=== PATIENT | female | born 1935 | race Caucasian/White ===

== ENCOUNTER 2021-05-19 09:24 | Outpatient (CLI) | payer MEDICARE, SELFPAY ==
--- NOTE | 2021-05-19 10:32 | ECG_ITS ---
Measurements Intervals [place] Rate: 67 P: 45 NV: 162 QRS: 4 QRSD: 80 T: 40 QT: 434 QTc: 458 Interpretive Statements SINUS RHYTHM INCOMPLETE RIGHT BUNDLE BRANCH BLOCK BASELINE ARTIFACT- I, III, AVR, AVL, AVF BORDERLINE ECG Electronically Signed On 05-19-2021 10:47:24 CREOSOTING ENGINEER by Kurt Loya D.O.
[2021-05-19 11:03] LABS: Basophils Absolute Auto 0.1 K/mm3 (0.0-0.1); Basophils Percent Auto 0.9 % (0.2-1.2); Eosinophils Absolute Auto 0.1 K/mm3 (0-0.3); Eosinophils Percent Auto 1.5 % (0-4.4); Hematocrit 44.2 % (37.0-47.0); Hemoglobin 14.5 g/dL (12.0-15.0); Immature Granulocyte Absolute 0.01 K/mm3 (0.00-0.031); Immature Granulocyte Percent A 0.1 % (0-0.5); Lymphocytes Percent Auto 43.6 % (18.3-44.2); Mean Corpuscular HGB Conc 32.8 g/dl (32-36); Mean Corpuscular Hemoglobin 33.4 pg (26-34); Mean Corpuscular Volume 101.8 fl (80-100); Mean Platelet Volume 9.7 fl (7.4-10.4); Monocytes Absolute Auto 0.5 K/mm3 (0.1-0.6); Monocytes Percent Auto 7.1 % (2.6-8.5); Neutrophils Absolute Auto 3.2 K/mm3 (1.3-6.7); Neutrophils Percent Auto 46.8 % (45.5-73.1); Platelet Count Result 269 k/mm3 (150-375); Red Blood Count 4.34 M/mm3 (4.2-5.4); Red Cell Distribution Width 13.3 % (11.5-14.5); White Blood Count 6.9 K/mm3 (4.5-10.0)
[2021-05-19 11:09] LABS: Albumin Level 4.3 g/dL (3.5-5.1); Estimated Glomerular Filt Rate > 60; Glucose 105 mg/dL (65-110)
[2021-05-19 11:14] LABS: Hemoglobin A1C 5.3 % (<5.7)
[2021-05-19 11:22] LABS: Urine Cotinine NEGATIVE
== END 2021-05-19 09:25 | disposition home or self-care (01) ==
LOC: ANHSURGERY 09:32
PROVIDERS: PCP Internal Medicine; Visit Provider Orthopaedic Surgery
DX: M17.11 Unilateral primary osteoarthritis, right knee (principal); Z01.818 Encounter for other preprocedural examination; I45.10 Unspecified right bundle-branch block
CPT/HCPCS: 80307; 82040; 82565; 82947; 83036; 85025; 87081; 93005

== ENCOUNTER 2021-06-08 16:01 | Observation (INO) | payer MEDICARE, SELFPAY ==
[2021-05-19 09:44] VITALS: BMI 28.8
--- NOTE | 2021-05-19 10:11 | PC.NURSE ---
Report to the Outpatient Waiting Room, entrance under the green pavilion located off [facility], at time 0830 on date _06/07/21 . OR Time: _1030 . - You and your visitor will be asked a series of questions to screen for COVID 19 for your protection. - A mask is required within the hospital. - Only one visitor is allowed at this time. Patient visitors will be guided where to wait when not with patient. Preoperative COVID Testing Requirements: No COVID Test needed if: (proof is required; if not received patient will have Rapid Test prior to entry) - Patient has received COVID Vaccine at least 14 days prior to procedure date or - Patient has positive COVID test result within last 90 days of surgery date. COVID Test needed if above criteria is not met If not COVID vaccinated a COVID test must be conducted within 72 hours of surgery and patient is asked to isolate self from time of testing until procedure. You will go to the [facility] for your COVID testing. The [facility] is located at the corner of [address] [facility]. You will only be called if COVID results are positive and your surgeon may reschedule your elective surgery date. Patients may have clear liquids (water, carbonated beverages, clear teas, apple juice) until 3 hours prior to surgery with a maximum of 20 ounces. - No food from midnight until time of surgery - Infants may have breast milk until 4 hours before surgery, formula 6 hours prior to surgery. - Children will be allowed to drink immediately following surgery. If applicable, please bring a bottle or sippy cup to assist with drinking. Juice, water, soda, and popsicles are readily available. For infants on formula, please bring formula the day of surgery. Pacifiers are allowed. Take the following medications with a SIP of water the morning of surgery: __ALPRAZOLAM,METOPROLOL,SERTRALINE Medications to discontinue per physician __ALL VITAMINS AND SUPPLEMENTS 3 DAYS PRE OP Date to take last dose__06/03/21 Please no make-up, nail indonesian, hairspray, perfume, deodorant, or body powder the day of surgery. No jewelry (including any body piercings) or valuables the day of surgery, leave them at home. Please take a shower or bath the night before, or the morning of, surgery with an antibacterial soap. Wear comfortable, loose fitting clothing. Children are encouraged to wear pajamas. - Jewelry must be removed prior to entering the operating room. Rings and piercings that are not removed may be cut off. - The hospital will not accept responsibility for valuables. - Please leave all valuables, including medications, at home the day of surgery. If you are going home after surgery, a licensed spike driver must drive you home. - NO public transportation without another adult. - We recommend that an adult stay with you for 24 hours following discharge. - We also recommend that you do not drive, make important decision, drink alcoholic beverages, or take any drugs that were not prescribed by your health care provider for at least 24 hours after your discharge time. For Pediatric surgeries, we recommend two adults accompany the child home (only one inside the building at this time). Follow any additional instructions given to you from your surgeon. VERBAL instructions given to _PATIENT AND DAUGHTER TREVOR and asked if any additional questions and then verbalized understanding. Patient advised to call surgeon office or pre surgery nurse liaison [phone] if any additional questions.
[2021-05-19 10:30] VITALS: BP 134/63; PULSE 65; RESP 16; TEMP 36.8; O2SAT 98
--- NOTE | 2021-06-06 09:45 | WPDANESEPPF ---
Anes - Initial Pre Proc Eval Procedure: Operation Date: 06/07/21 07:30 Proposed Procedures p Right Total Knee Arthroplasty - Juan Moses MD Date/Time: 06/06/21 09:45 Surgeon: Juan Moses MD Pre Op Diagnosis: right knee OA Patient Data Age: 86 Gender: F Height: 1.6 m Weight: 73.8 kg Last Vital Signs Temp 36.8 C 05/19/21 10:30 Pulse 65 05/19/21 10:30 Resp 16 05/19/21 10:30 BP 134/63 05/19/21 10:30 Pulse Ox 98 05/19/21 10:30 Allergies Allergy/AdvReac Type Severity Reaction Status Date / Time diclofenac [From [facility]] AdvReac Severe RASH AND Verified 06/07/21 06:00 HIVES codeine AdvReac Unknown Hives Verified 06/07/21 06:00 Home Medications Medication Instructions Recorded Confirmed Type aspirin 81 mg tablet,delayed 81 mg PO DAILY 07/17/19 06/07/21 History release metoprolol tartrate 50 mg tablet 50 mg PO BID 07/17/19 06/07/21 History sertraline 25 mg tablet 25 mg PO DAILY 07/17/19 06/07/21 History simvastatin 40 mg tablet 40 mg PO DAILY 07/17/19 06/07/21 History calcium carbonate 600 mg-vitamin 1 cap PO BID 02/02/21 06/07/21 History D3 12.5 mcg (500 unit) capsule acetaminophen [Tylenol Arthritis] 650 mg PO Q8H PRN 05/19/21 06/07/21 History alprazolam 0.5 mg PO PRN PRN 05/19/21 06/07/21 History cholecalciferol (vitamin D3) 50 mcg PO BID 05/19/21 06/07/21 History rivaroxaban 10 mg tablet 10 mg PO DAILY #14 tablet 05/25/21 Rx ECG: Date of Service: 05/19/21 Procedure(s): CA 12 lead EKG Accession Number(s): [id number] cc: ~ Measurements Intervals [place] Rate: 67 P: 45 [place]: 162 QRS: 4 QRSD: 80 T: 40 QT: 434 QTc: 458 Interpretive Statements SINUS RHYTHM INCOMPLETE RIGHT BUNDLE BRANCH BLOCK BASELINE ARTIFACT- I, III, AVR, AVL, AVF BORDERLINE ECG Electronically Signed On 05-19-2021 10:47:24 CLOTH COVERED HELMET PULLER by Kurt Loya D.O. Patient hx anesthesia problems: none Family hx anesthesia problems: none Results Review: All pre-operative results and documents have been reviewed as part of the pre-operative evaluation. [facility] Past Medical History Medical History (Updated 06/06/21 @ 09:46 by Sanjiv Crawley MD) Anxiety Degenerative arthritis of knee, bilateral High cholesterol Overweight (BMI 25.0-29.9) Surgical History Surgical History Herniated disc In neck- 1985 Dr. Baker History of hip replacement, total (~2009) 2009 Dr. Moses Family History Family History Sibling Hypertension Cancer Unknown Cerebrovascular accident Hypertension History of arthritis Social History Social History Smoking status: Never smoker Additional smoking assessment comments: DENIES ANY FORM OF TOBACCO USE Alcohol intake: current Alcohol use details: Occasional Living arrangements: alone Additional living arrangements comments: Gender identity (if verbalized by the patient): Female Spiritual care concerns: No Anes - Eval Final PreProcedure Day of Procedure 06/06/21 09:45 Patient weight: overweight Heart: regular rate and rhythm Lungs: clear to auscultation and normal air movement Airway: Mallampati scale class II Neurological: alert and oriented Last oral intake: >/= 8 hours ASA classification: II Emergent: no Anesthetic plan: proceed Anesthesia type and monitoring: general LMA Results Review: All pre-operative results and documents have been reviewed as part of the pre-operative evaluation. Informed Consent: The patient's anesthetic plan and its attendant risks and benefits were
[2021-06-07] VITALS (15 sets, daily range): BP systolic 96–131; BP diastolic 47–71; PULSE 62–89; RESP 12–18; TEMP 36.4–37.1; O2SAT 92–100
[2021-06-07] MEDS: LACTATED RINGERS 1,000 ML 30 ML IV CONT ×2 (06:27→10:56)
[2021-06-07] MEDS: ACETAMINOPHEN 500 MG TABLET 1000 MG PO (06:28)
[2021-06-07] MEDS: TRANEXAMIC ACID 1,000MG/ISO100 1,000 MG/100 ML BAG 200 MG IVPB (07:01)
--- NOTE | 2021-06-07 07:14 | WPDANESPNB ---
Anes - Peripheral Nerve Block Date/Time: 06/07/21 07:14 I have discussed with the patient/family/POA the placement of a peripheral nerve block for post-operative pain management, including associated risks, benefits, complications, and side effects. Alternative methods of post-operative analgesia were detailed. Questions were solicited and answers provided to the satisfaction of the patient/family/POA. Time-Out: A pre-procedural Time-Out was completed immediately before starting the procedure and confirmed: Patient Identification, Site, Procedure, Patient Position and the Availability of Requisite Equipment. Clinical Indications: Acute post-operative pain management requested by the operative surgeon. Nerve Block Insertion Note Anes-nerve block: adductor canal right Patient position: supine Skin prep: chlorhexidine Needle: 22 gauge, stimulating, insulated echogenic needle. Needle length: 80 mm Technique: ultrasound Technique comment: in plane Injectate: bupivacaine 0.5% with epi 5 mcg/ml (30cc) Observations: tolerated well Complications: none Procedure start time:: 725 Procedure end time:: 730
--- NOTE | 2021-06-07 07:24 | WPDHPUPDATE1 ---
History and Physical Update Update Date/Time: 06/07/21 07:24 History and Physical has been reviewed, including an updated exam of the patient. There are NO changes in the patient's condition. Risks, benefits, and alternatives have been discussed and questions answered. Patient agrees to proceed with procedure.
[2021-06-07] MEDS: ceFAZolin 2 GM/D5W 50 ML 2 GM/50 ML BAG IVPB ×2 (07:41→16:33)
[2021-06-07] MEDS: GENTAMICIN BONE CEMENT REFOBACIN 1 EACH TOPICAL (08:20)
[2021-06-07] MEDS: ceFAZolin SODIUM 1 GM VIAL IV PUSH (09:08)
--- NOTE | 2021-06-07 09:53 | P.OP_ITS ---
Procedure Note - Detailed Date of Procedure 06/07/21 Pre-op Diagnosis right knee OA Post-op Diagnosis same Procedure Performed Right total knee replacement Surgeon Juan Moses MD Cytotechnologist/Cytology Supervisor Gris Steve Anesthesia general and regional Description of Procedure The patient was identified and proper site identified. In the preop holding area the anesthesia team performed a right lower extremity sub sartorial block after which the patient was taken to the operating room and transferred to the OR table positioning supine taking care to pad the torso and extremities. After induction of general anesthesia with intubation, a nonsterile tourniquet was placed high on the right thigh. The right lower extremity was prepped and draped in the usual sterile fashion. The extremity was exsanguinated and with the knee flexed tourniquet was inflated to 300 mmHg remaining up for approximate ly 57 minutes. An anterior midline incision was made and a modified medial parapatellar approach was used. Infra and suprapatellar fat pads were excised. Patella was evaluated and the mid to lateral portion had a thickness of about 10 millimeters. Medially was 17 millimeters but it was such a small portion of the patella, it was felt that resection would increase the risk for patellar fracture. Marginal osteophytes were removed from the patella and no further preparation done. Using the intramedullary guide the distal femur was cut in the proper orientation for the size 60 femoral component. Using the extramedullary guide the tibia was cut perpendicular to the long axis protecting collateral ligaments and popliteal structures. It was sized to a 67. Flexion and extension gaps were balanced. Trial reduction was undertaken and the weight-bearing line was noted to passed through the center of the joint. Proximal tibia was drilled and punched in the proper orientation for the real component. Trial components were removed. The bone surfaces were washed with pulsatile lavage and dried. The real components were cemented simultaneously. The knee was held in extension and the until the cement had cured. Excess cement was removed from the joint. After trialing it was determined that the 12 mm insert gave full range of motion from 0-120 degrees of flexion and the patella tracked in the femoral groove with no lift-off. After final lavage the joint the real 12 insert was placed and secured with a locking bar. A Betadine and saline wash was placed into the wound and allowed to sit for approximately 3 minutes and then evacuated. Periarticular tissues were infiltrated with 60 cc of the arthroplasty solution. 1 g of tranexamic acid was left in the wound. The extensor mechanism was repaired with #2 Vicryl suture and 0 looped PDS suture. Subcu was reapproximated with 3-0 Monocryl and 2-0 Stratafix with tissue adhesive for the skin. A sterile dressing was applied. She tolerated the procedure well, was awakened and extubated, transferred to the bed and was taken to recovery area in stable condition. There were no known intraoperative complications. Perioperative antibiotics were administered. Estimated Blood Loss 150 Tourniquet Time 57 Drains No Packing No Pathology none sent Complications No immediate complications Condition stable Disposition PACU
[2021-06-07] MEDS: fentaNYL CITRATE INJ (*CRX) 100 MCG/2 ML VIAL 25 MCG IV PUSH ×5 (10:25→11:30)
--- NOTE | 2021-06-07 11:03 | SUR.PHASEI ---
1101 sbar faxed floor notified
--- NOTE | 2021-06-07 12:10 | PC.NURSE ---
This patient, Rochelle Decker, was admitted to Medical Room 248-01. Patient/family oriented to hospital policies and general routines including ID bracelet, bed and alarms, visiting hours, pain management, procedures, bathroom and other care routines, personal items, smoking policy, room service/diet, and visiting hours. Information on how to activate the Rapid Response Team has been discussed. Patient/Family are encouraged to report perceived risks to care and to ask questions if they do not understand what they are told or what they should do.
[2021-06-07] MEDS: SENNA/DOCUSATE SODIUM TABLET 2 TAB PO (16:33)
[2021-06-07] MEDS: CHOLECALCIFEROL 1,000 UNITS TABLET 2000 UNITS PO (16:33)
[2021-06-07] MEDS: ACETAMINOPHEN 325 MG TABLET 650 MG PO ×2 (16:33→21:27)
--- NOTE | 2021-06-07 19:30 | PM.IMCN ---
Assessment and Plan Assessment and plan (1) History of total knee arthroplasty: Code(s): Z96.659 - Presence of unspecified artificial knee joint Status: Inactive Assessment and Plan: as per Dr Kenny. Post op care per ortho . dvt prophylaxis per ortho. (2) Anxiety: Code(s): F41.9 - Anxiety disorder, unspecified Status: Acute Assessment and Plan: Continue with alprazolam (3) HTN (hypertension), benign: Code(s): I10 - Essential (primary) hypertension Status: Acute Assessment and Plan: Continue with metoprolol (4) Hyperlipidemia: Code(s): E78.5 - Hyperlipidemia, unspecified Status: Chronic Assessment and Plan: Continue with Zocor HPI Data of Consult Consult date: 06/07/21 Requesting Physician: Juan Kenny MD Primary Care Provider: Fan Da Silva, Consult Narrative Narrative: Rochelle Decker is a 86 year old female year old female patient who is very hard of hearing. Has a history of degenerative arthritis of the knee bilaterally. The patient had been receiving injections. The patient has most pronounced at the patellar femoral articulation with severe erosions. The patient did fairly well with injections but was interested in undergoing a right total knee arthroplasty. Please see the operative note for the right total knee replacement per Dr. KENNY. the patient has a history of anxiety and hypertension. I thank orthopedic physician for the opportunity to consult on this patient. The patient is listed as being admitted to a regular SDc. Date of service is 06/07/2021. Review of Systems Review of Systems: All systems reviewed & are unremarkable except as noted in HPI and below Constitutional: Constitutional: Reports as per HPI and Reports no additional constitutional complaints Eyes: Eyes: Reports as per HPI and Reports no additional eye complaints ENT: Reports system reviewed and no additional complaints, except as documented and Reports Normal hearing present Cardiovascular: Cardiovascular: Reports no additional cardiovascular complaints Respiratory: Respiratory: Reports no additional respiratory complaints and Reports no additional respiratory complaints Gastrointestinal: Gastrointestinal: Reports as per HPI and Reports no additional gastrointestinal complaints Musculoskeletal: Musculoskeletal: Reports no additional musculoskeletal complaints Integumentary/Breasts: Skin/Breast: Reports system reviewed and no additional complaints, except as docu and Reports as per HPI Neurologic: Reports system reviewed and no additional complaints, except as documented, Reports as per HPI and Reports Normal hearing present Psychiatric: Psychiatric: Reports no additional psychiatric complaints and Reports as per HPI Endocrine: Endocrine: Reports no additional endocrine complaints Hematologic/Lymphatic: Hematologic/Lymphatic: Reports no additional hematologic/lymphatic complaints Allergic/Immunologic: Allergic/Immunologic: Reports no additional allergic/immunologic complaints [facility] Past Medical History Medical History (Updated 06/07/21 @ 19:53 by Vane Vasquez NP) Anxiety Degenerative arthritis of knee, bilateral High cholesterol HTN (hypertension), benign Hyperlipidemia Overweight (BMI 25.0-29.9) Surgical History Surgical History (Updated 06/07/21 @ 19:52 by Vane Vasquez NP) Herniated disc In neck- 1985 Dr. Baker History of hip replacement, total (~2009) 2009 Dr. Kenny History of total knee arthroplasty Family History Family History Sibling Hypertension Cancer Unknown Cerebrovascular accident Hypertension History of arthritis Social History Social History (Updated 06/07/21 @ 19:46 by Vane Vasquez NP) Social History: Patient stated when she was very young she did smoke in her 20s but has not smoked since then. The patient has 3 children and
[2021-06-07] MEDS: METOPROLOL TARTRATE 50 MG TAB PO (21:25)
[2021-06-07] MEDS: FAMOTIDINE 20 MG TABLET PO (21:25)
[2021-06-08] VITALS (8 sets, daily range): BP systolic 111–128; BP diastolic 43–52; PULSE 66–78; RESP 16–20; TEMP 36.6–37; O2SAT 95–100
--- NOTE | ~2021-06-08 | XR_ITS ---
EXAMINATION: XR knee RT 2V DATE: 06/07/2021 10:23 INDICATION: Right total knee arthroplasty. Postop. TECHNIQUE: 2 views of right knee were obtained. COMPARISON: Right knee radiographs 07/17/2019 FINDINGS: There is a total right knee arthroplasty without patellar resurfacing in near-anatomic alig nment. No fracture. Osteophytes have been resected from the patella. There is gas in the knee joint a nd soft tissues, consistent with recent surgery. IMPRESSION: 1. Total right knee arthroplasty in near-anatomic alignment. Reviewed, dictated and finalized at location A. [employer]
[2021-06-08] MEDS: ceFAZolin 2 GM/D5W 50 ML 2 GM/50 ML BAG IVPB ×2 (00:10→10:08)
[2021-06-08] MEDS: traMADol HCL (*CRX) 50 MG TABLET PO ×2 (04:51→11:04)
[2021-06-08] MEDS: ACETAMINOPHEN 325 MG TABLET 650 MG PO ×3 (05:52→21:15)
[2021-06-08 06:36] LABS: Basophils Percent Auto 0.2 % (0.2-1.2); Eosinophils Percent Auto 0.1 % (0-4.4); Hemoglobin 11.6 g/dL (12.0-15.0); Immature Granulocyte Absolute 0.06 K/mm3 (0.00-0.031); Immature Granulocyte Percent A 0.4 % (0-0.5); Lymphocytes Absolute Auto 2.34 K/mm3 (0.9-3.2); Lymphocytes Percent Auto 17.4 % (18.3-44.2); Mean Corpuscular HGB Conc 32.2 g/dl (32-36); Mean Corpuscular Hemoglobin 33.4 pg (26-34); Mean Corpuscular Volume 103.7 fl (80-100); Mean Platelet Volume 9.9 fl (7.4-10.4); Monocytes Absolute Auto 1.8 K/mm3 (0.1-0.6); Monocytes Percent Auto 13.3 % (2.6-8.5); Neutrophils Absolute Auto 9.2 K/mm3 (1.3-6.7); Neutrophils Percent Auto 68.6 % (45.5-73.1); Platelet Count Result 220 k/mm3 (150-375); Red Blood Count 3.47 M/mm3 (4.2-5.4); Red Cell Distribution Width 13.9 % (11.5-14.5); White Blood Count 13.4 K/mm3 (4.5-10.0)
[2021-06-08 06:40] LABS: Lactic Acid Reflex 0.9 mmol/L (0.7-2.1)
[2021-06-08 06:43] LABS: Alanine Aminotransferase 14 U/L (4-35); Albumin Level 3.3 g/dL (3.5-5.1); Alkaline Phosphatase 53 U/L (38-126); Anion Gap 3 mmol/L (8-16); Aspartate Amino Transferase 27 U/L (14-36); Bilirubin,Total 0.5 mg/dL (0.2-1.3); Blood Urea Nitrogen 14 mg/dL (7-17); Calcium 8.8 mg/dL (8.4-10.2); Carbon Dioxide 28 mmol/L (22-30); Chloride 101 mmol/L (98-107); Estimated CRCL calculation 43 ml/min; Estimated Glomerular Filt Rate > 60; Glucose 105 mg/dL (65-110); Lactate Dehydrogenase 396 U/L (313-618); Magnesium 2.1 mg/dL (1.6-2.3); Potassium 3.9 mmol/L (3.4-5.0); Sodium 132 mmol/L (137-145)
--- NOTE | 2021-06-08 07:37 | PM.PNORT ---
Progress Note: A&P Assessment and Plan (1) History of total knee arthroplasty: Qualifiers: Laterality: right Qualified Code(s): Z96.651 - Presence of right artificial knee joint Code(s): Z96.659 - Presence of unspecified artificial knee joint Status: Acute Assessment and Plan: 86-year-old female postop day one right knee replacement. Plan on continuing with therapy today and possibly discharge home tomorrow. Encouraged her to use her hearing aids and to ask for the pain medication. Subjective Subjective Date/Time Seen: 06/08/21 07:37 Post Op day: 1 Principal diagnosis: Status post right total knee replacement Interval history: This document created with [id number] technology and is subject to line haul driver irregularities. 86-year-old female postop day one right knee replacement. Experiencing some discomfort in her right knee. Did not ask for any pain medication overnight so was only getting the schedule Tylenol. Did get some tramadol this morning and is feeling better. Review of Systems Constitutional: Constitutional: Denies chills and Denies fever(s) Eyes: Eyes: Reports no additional eye complaints ENT: Reports system reviewed and no additional complaints, except as documented Cardiovascular: Cardiovascular: Denies chest pain Respiratory: Respiratory: Reports no additional respiratory complaints Gastrointestinal: Gastrointestinal: Denies abdominal pain Exam Const: General: cooperative, no acute distress and alert Nutritional Appearance: other Orientation/consciousness: patient oriented x3 Limitations: no limitations HENMT: Head: normal to inspection Ears: hearing grossly abnormal bilaterally ( Hard of hearing) Face and sinus: face symmetric Mouth: Yes moist mucous membranes Teeth and gingiva: fair dentition Eyes: Alignment and Position: alignment normal and position normal Sclera: sclerae normal Neck: Neck: normal visual inspection and nontender Chest: Chest palpation & inspection: normal inspection of the chest Resp: Effort & Inspection: normal respiratory effort and able to speak in complete sentences GI: Inspection: other ( nontender, nondistended) Skin: General skin exam: normal color Rashes: no rashes Neuro: General: patient oriented x3 Cognition (Neuro): normal cognition Speech: normal speech Extrem: General: normal to inspection and other Other: Exam of the right knee shows dry dressing. Minimal swelling and bruising about the anterior portion of the right knee. Calves negative. With coaxing, can be brought into full extension. Psych: Appearance: grossly normal Mental Status: mental status grossly normal Objective Data Vital Signs Vital Signs: Vital Signs - 24 hr 06/07/21 10:10 06/07/21 10:25 06/07/21 10:40 Temperature 97.9 F Pulse Rate 89 88 87 Respiratory Rate 14 16 14 Blood Pressure 111/54 L 113/63 103/53 L Pulse Oximetry 99 100 100 06/07/21 10:55 06/07/21 11:15 06/07/21 11:30 Temperature Pulse Rate 86 86 85 Respiratory Rate 12 18 15 Blood Pressure 101/54 L 100/54 L 98/48 L Pulse Oximetry 94 95 96 06/07/21 12:10 06/07/21 12:25 06/07/21 12:55 Temperature 97.5 F L 97.6 F 97.8 F Pulse Rate 88 89 82 Respiratory Rate 16 16 16 Blood Pressure 104/47 L 106/51 L 96/47 L Pulse Oximetry 96 96 92 06/07/21 14:00 06/07/21 14:04 06/07/21 17:30 Temperature 98.3 F 98.0 F Pulse Rate 87 64 Respiratory Rate 16 16 Blood Pressure 119/66 121/68 Pulse Oximetry 97 97 100 06/07/21 21:25 06/07/21 21:30 06/08/21 01:30 Temperature 98.8 F 98.1 F Pulse Rate 72 72 68 Respiratory Rate 18 18 Blood Pressure 114/60 128/52 L Pulse Oximetry 97 95 06/08/21 05:30 Temperature 98.6 F Pulse Rate 68 Respiratory Rate 18 Blood Pressure 111/52 L Pulse Oximetry 96 Intake/Output Intake/Output: Intake & Output 06/05/21 06/06/21 06/07/21 06/08/21 23:59 23:59 23:59 23:59 Intake Total 1540 / 1540 650 / 650 Output Total
[2021-06-08] MEDS: METOPROLOL TARTRATE 50 MG TAB PO ×2 (10:12→21:16)
[2021-06-08] MEDS: SENNA/DOCUSATE SODIUM TABLET 2 TAB PO ×2 (10:13→16:59)
[2021-06-08] MEDS: SERTRALINE HCL 25 MG TABLET PO (10:13)
[2021-06-08] MEDS: SIMVASTATIN 20 MG TABLET 40 MG PO (10:13)
[2021-06-08] MEDS: FAMOTIDINE 20 MG TABLET PO ×2 (10:13→21:15)
[2021-06-08] MEDS: polyethylene glycoL 3350 17 GM POWD.PACK PO (10:14)
[2021-06-08] MEDS: RIVAROXABAN 10 MG TABLET PO (10:14)
[2021-06-08 11:41] LABS: Hematocrit 37.7 % (37.0-47.0); Hemoglobin 12.3 g/dL (12.0-15.0)
--- NOTE | 2021-06-08 11:44 | PM.IMPN ---
Progress Note: A&P Assessment and Plan (1) History of total knee arthroplasty: Qualifiers: Laterality: right Qualified Code(s): Z96.651 - Presence of right artificial knee joint Code(s): Z96.659 - Presence of unspecified artificial knee joint Status: Acute Assessment and Plan: Postop day 1 of right total knee replacement and doing well -continue with Xarelto for DVT prophylaxis and tramadol/Nucynta for pain per Ortho -continue PT and OT -plan for discharge tomorrow (2) Anxiety: Code(s): F41.9 - Anxiety disorder, unspecified Status: Acute Assessment and Plan: Chronic with no acute issues - Continue with alprazolam and Zoloft (3) HTN (hypertension), benign: Code(s): I10 - Essential (primary) hypertension Status: Acute Assessment and Plan: Last blood pressure 127/49 -continue with metoprolol (4) Hyperlipidemia: Code(s): E78.5 - Hyperlipidemia, unspecified Status: Chronic Assessment and Plan: Continue with simvastatin (5) Hyponatremia: Code(s): E87.1 - Hypo-osmolality and hyponatremia Status: Acute Assessment and Plan: 132 today -monitor Additional Plan Hemoglobin was 14.5 prior to surgery and this morning was 11.6. Repeat hemoglobin is 12.3. No active bleed suspected. Leukocytosis likely reactionary to surgery. No infection suspected Time Spent With Patient Time with patient: 25 - 35 minutes Subjective Date/time seen: 06/08/21 11:44 Interval history: Pt is a 86-year-old female here for elective right knee replacement. Patient was seen today with family at bedside. The patient states that her pain is currently a 5/10. She denies numbness, tingling, chest pain, shortness of breath, nausea, vomiting or diarrhea. She is having constipation. She plans to go home with the family member and they have 1 stair. Review of Systems Review of Systems: All systems reviewed & are unremarkable except as noted in HPI and below Exam Narrative: General: Well developed well nourished patient in NAD HEENT: normocephalic Neck: supple Neuro: Alert and oriented CV:RRR Resp:CTA Abd: Soft, non distended. No pain to palpation. Positive bowel sounds Extremities: Right knee incision site covered with bandage. No erythema, bleeding or drainage noted to the area. Pulses and sensation intact. Objective Data Vital Signs Vital Signs: Vital Signs - 24 hr 06/07/21 12:10 06/07/21 12:25 06/07/21 12:55 Temperature 97.5 F L 97.6 F 97.8 F Pulse Rate 88 89 82 Respiratory Rate 16 16 16 Blood Pressure 104/47 L 106/51 L 96/47 L Pulse Oximetry 96 96 92 06/07/21 14:00 06/07/21 14:04 06/07/21 17:30 Temperature 98.3 F 98.0 F Pulse Rate 87 64 Respiratory Rate 16 16 Blood Pressure 119/66 121/68 Pulse Oximetry 97 97 100 06/07/21 21:25 06/07/21 21:30 06/08/21 01:30 Temperature 98.8 F 98.1 F Pulse Rate 72 72 68 Respiratory Rate 18 18 Blood Pressure 114/60 128/52 L Pulse Oximetry 97 95 06/08/21 05:30 06/08/21 10:20 Temperature 98.6 F 98.0 F Pulse Rate 68 66 Respiratory Rate 18 20 Blood Pressure 111/52 L 127/49 L Pulse Oximetry 96 100 Intake/Output Intake/Output: Intake & Output 06/05/21 06/06/21 06/07/21 06/08/21 23:59 23:59 23:59 23:59 Intake Total 1540 890 Output Total 200 Balance 1540 690 Meds/Results Medications: Active Medications Generic Name Dose Route Start Last Admin Trade Name Freq PRN Reason Stop Dose Admin Acetaminophen 650 mg 06/07/21 14:00 06/08/21 05:52 Acetaminophen 325 Mg Tablet PO 650 mg Q8HR EMILIANO Administration Alprazolam 0.5 mg 06/07/21 11:45 Alprazolam (*Crx) 0.5 Mg Tablet PO PRN PRN Anxiety Bisacodyl 10 mg 06/07/21 11:45 Bisacodyl 10 Mg Suppository RECTAL DAILY PRN Constipation Calcium Carbonate 500 mg 06/07/21 17:00 06/08/21 10:12 Calcium/Vitamin D 500 Mg Tablet PO 0
[2021-06-08] MEDS: CHOLECALCIFEROL 1,000 UNITS TABLET 2000 UNITS PO ×2 (14:45→16:59)
[2021-06-08] MEDS: TAPENTADOL HCL (*CRX) 50 MG TABLET PO (17:04)
[2021-06-09] VITALS (7 sets, daily range): BP systolic 106–134; BP diastolic 44–59; PULSE 71–78; RESP 16–20; TEMP 36.3–36.9; O2SAT 94–98
[2021-06-09] MEDS: ACETAMINOPHEN 325 MG TABLET 650 MG PO ×3 (05:51→20:23)
[2021-06-09 06:21] LABS: Hematocrit 35.7 % (37.0-47.0); Hemoglobin 11.8 g/dL (12.0-15.0); Mean Corpuscular HGB Conc 33.1 g/dl (32-36); Mean Corpuscular Hemoglobin 34.1 pg (26-34); Mean Corpuscular Volume 103.2 fl (80-100); Mean Platelet Volume 9.9 fl (7.4-10.4); Platelet Count Result 206 k/mm3 (150-375); Red Blood Count 3.46 M/mm3 (4.2-5.4); Red Cell Distribution Width 13.8 % (11.5-14.5); White Blood Count 10.9 K/mm3 (4.5-10.0)
[2021-06-09 06:24] LABS: Anion Gap 3 mmol/L (8-16); Blood Urea Nitrogen 12 mg/dL (7-17); Calcium 8.6 mg/dL (8.4-10.2); Carbon Dioxide 29 mmol/L (22-30); Chloride 97 mmol/L (98-107); Estimated CRCL calculation 49 ml/min; Estimated Glomerular Filt Rate > 60; Glucose 110 mg/dL (65-110); Potassium 3.9 mmol/L (3.4-5.0); Sodium 129 mmol/L (137-145)
--- NOTE | 2021-06-09 07:53 | PM.DS ---
DS: Admitting Diagnosis Discharge Date 06/09/2021 Admitting Diagnosis Right knee osteoarthritis DS: Discharge Diagnosis Discharge Diagnosis (1) History of total knee arthroplasty: Qualifiers: Laterality: right Qualified Code(s): Z96.651 - Presence of right artificial knee joint Code(s): Z96.659 - Presence of unspecified artificial knee joint Status: Acute Assessment and Plan: 86-year-old female postop day 2 after total right knee replacement. She is doing well with the tramadol and Tylenol for pain regimen. She was able to participate in therapy yesterday and will do so again today. She is going to be discharged home with home health to come see her. She will follow up in our office in 2 weeks for wound check. DS: Summary Hospital Course Reason for hospitalization: Observation after outpatient procedure Hospital Course: 86-year-old female admitted for observation after having a right total knee arthroplasty. She was having significant pain during the 1st night of her stay but the RN stated that she did not ask for pain medication during that time. She was then given tramadol and was able to participate in therapy. During today's assessment, the wound dressing continues to be clean and dry. She states that her pain level that is 0 with the medication. She will have another therapy session today and plan to be discharged home with home health. Follow up in our office in 2 weeks. Status at Discharge Functional status at discharge: uses cane/walker Overall status at discharge: patient is progressing back to baseline Time Spent with Patient Time attestation: Total time spent providing and/or coordinating discharge services: Exam Const: General: cooperative, no acute distress and alert Nutritional Appearance: other Orientation/consciousness: patient oriented x3 Limitations: no limitations HENMT: Head: normal to inspection Ears: hearing grossly abnormal bilaterally ( Hard of hearing) Face and sinus: face symmetric Teeth and gingiva: fair dentition Eyes: Alignment and Position: alignment normal and position normal Neck: Neck: normal visual inspection and nontender Chest: Chest palpation & inspection: normal inspection of the chest Resp: Effort & Inspection: normal respiratory effort and able to speak in complete sentences GI: Inspection: other ( nontender, nondistended) Skin: Rashes: no rashes Neuro: General: patient oriented x3 Cognition (Neuro): normal cognition Speech: normal speech Extrem: General: other Other: Exam of the right knee shows a clean and dry dressing. Swelling and bruising about the anterior portion of the right knee consistent with recent surgical procedure. Calves negative. The knee can be brought to full extension with some help. Psych: Mental Status: mental status grossly normal DS: Data Data Completed and Pending Labs on day of discharge: Labs from last 24 hours 06/09/21 06/09/21 06/08/21 05:59 05:59 11:28 WBC 10.9 H RBC 3.46 L Hgb 11.8 L 12.3 Hct 35.7 L 37.7 MCV 103.2 H MCH 34.1 H MCHC 33.1 RDW 13.8 Plt Count 206 MPV 9.9 Sodium 129 L Potassium 3.9 Chloride 97 L Carbon Dioxide 29 Anion Gap 3 L BUN 12 Creatinine 0.70 Estim Creat Clear Calc 49 Estimated GFR > 60 Glucose 110 Calcium 8.6 Discharge Plan Discharge Attending physician on discharge: Juan Moses Consulting providers: José Miguel Orozco ; Paz Ponce Discharging Clinician: Brad Ramirze Patient Disposition: Home, Self-Care Activity: other - see discharge instructions Diet: as tolerated Wound Care Instructions: other - see discharge instructions Discharge Instructions: 3 times daily for 20 minutes each time, reclining in bed with ice packs over the incision and a pillow underneath the calf of the affected leg, not under the knee. Your wound is glued so it is okay to get in
[2021-06-09] MEDS: TAPENTADOL HCL (*CRX) 50 MG TABLET PO (08:49)
[2021-06-09] MEDS: polyethylene glycoL 3350 17 GM POWD.PACK PO (08:50)
[2021-06-09] MEDS: SERTRALINE HCL 25 MG TABLET PO (08:50)
[2021-06-09] MEDS: SIMVASTATIN 20 MG TABLET 40 MG PO (08:50)
[2021-06-09] MEDS: CHOLECALCIFEROL 1,000 UNITS TABLET 2000 UNITS PO ×2 (08:50→17:02)
[2021-06-09] MEDS: FAMOTIDINE 20 MG TABLET PO ×2 (08:50→20:23)
[2021-06-09] MEDS: RIVAROXABAN 10 MG TABLET PO (08:51)
[2021-06-09] MEDS: SENNA/DOCUSATE SODIUM TABLET 2 TAB PO ×2 (08:51→17:02)
[2021-06-09] MEDS: METOPROLOL TARTRATE 50 MG TAB PO ×2 (10:00→20:23)
[2021-06-09 12:07] LABS: Sodium Urine Random 18 meq/L
[2021-06-09 12:39] LABS: Anion Gap 4 mmol/L (8-16); Blood Urea Nitrogen 12 mg/dL (7-17); Calcium 8.8 mg/dL (8.4-10.2); Carbon Dioxide 27 mmol/L (22-30); Chloride 95 mmol/L (98-107); Estimated CRCL calculation 49 ml/min; Estimated Glomerular Filt Rate > 60; Glucose 114 mg/dL (65-110); Potassium 3.7 mmol/L (3.4-5.0); Sodium 126 mmol/L (137-145)
--- NOTE | 2021-06-09 13:10 | PCOTNOTE ---
On 06/09/21, the student, Phyllis Kincaid, provided care and completed [facility] documentation on this patient. I have reviewed the student's documentation and agree with the findings.
--- NOTE | 2021-06-09 13:24 | PM.IMPN ---
Progress Note: A&P Assessment and Plan (1) Hyponatremia: Code(s): E87.1 - Hypo-osmolality and hyponatremia Status: Acute Assessment and Plan: Worsened to 129 this morning and was 126 this afternoon -her baseline according to her primary care physician last January was 138 -urine sodium 18 -will implement fluid restriction and recheck tomorrow morning. Hold Zoloft. -hold discharge until this has improved (2) History of total knee arthroplasty: Qualifiers: Laterality: right Qualified Code(s): Z96.651 - Presence of right artificial knee joint Code(s): Z96.659 - Presence of unspecified artificial knee joint Status: Acute Assessment and Plan: Postop day 2 of right total knee replacement and doing well -continue with Xarelto for DVT prophylaxis and tramadol/Nucynta for pain per Ortho -continue PT and OT -plan for discharge once her sodium improves (3) Anxiety: Code(s): F41.9 - Anxiety disorder, unspecified Status: Acute Assessment and Plan: Chronic with no acute issues - Continue with alprazolam and Zoloft (4) HTN (hypertension), benign: Code(s): I10 - Essential (primary) hypertension Status: Acute Assessment and Plan: Last blood pressure 116/51 -continue with metoprolol (5) Hyperlipidemia: Code(s): E78.5 - Hyperlipidemia, unspecified Status: Chronic Assessment and Plan: Continue with simvastatin Additional Plan Hemoglobin was 14.5 prior to surgery and today it is 11.8. No active bleed suspected. Leukocytosis likely reactionary to surgery and is resolving. No infection suspected Subjective Date/time seen: 06/09/21 13:24 Interval history: Pt is a 86-year-old female here for elective right knee replacement. Patient was seen today and is doing well. She said her pain is well controlled with pain medication but if it wears off it is pretty severe. She denies numbness, tingling, chest pain, shortness of breath, nausea, vomiting or diarrhea. She is having constipation. She plans to go home with the family member and they have 1 stair. Exam Narrative: General: Well developed well nourished patient in NAD HEENT: normocephalic Neck: supple Neuro: Alert and oriented CV:RRR Resp:CTA Abd: Soft, non distended. No pain to palpation. Positive bowel sounds Extremities: Right knee incision site covered with bandage. No erythema, bleeding or drainage noted to the area. Pulses and sensation intact. Objective Data Vital Signs Vital Signs: Vital Signs - 24 hr 06/08/21 14:15 06/08/21 18:40 06/08/21 20:00 Temperature 98.4 F 97.9 F Pulse Rate 68 73 78 Respiratory Rate 16 16 20 Blood Pressure 116/48 L 115/49 L Pulse Oximetry 96 96 98 06/08/21 21:16 06/08/21 22:00 06/09/21 02:00 Temperature 98.0 F 98.5 F Pulse Rate 78 78 71 Respiratory Rate 20 18 Blood Pressure 111/43 L 134/59 L Pulse Oximetry 98 96 06/09/21 06:00 06/09/21 10:09 Temperature 97.3 F L 98.0 F Pulse Rate 72 71 Respiratory Rate 20 Blood Pressure 126/52 L 116/51 L Pulse Oximetry 98 97 Intake/Output Intake/Output: Intake & Output 06/06/21 06/07/21 06/08/21 06/09/21 23:59 23:59 23:59 23:59 Intake Total 1540 1530 400 Output Total 950 1400 Balance 1540 580 -1000 Meds/Results Medications: Active Medications Generic Name Dose Route Start Last Admin Trade Name Freq PRN Reason Stop Dose Admin Acetaminophen 650 mg 06/07/21 14:00 06/09/21 05:51 Acetaminophen 325 Mg Tablet PO 650 mg Q8HR EMILIANO Administration Alprazolam 0.5 mg 06/07/21 11:45 Alprazolam (*Crx) 0.5 Mg Tablet PO PRN PRN Anxiety Bisacodyl 10 mg 06/07/21 11:45 Bisacodyl 10 Mg Suppository RECTAL DAILY PRN Constipation Calcium Carbonate 500 mg 06/07/21 17:00 06/09/21 08:50 Calcium/Vitamin D 500 Mg Tablet PO 07/07/21 16:59 500 mg BID EMILIANO Administration Famotidine 20 mg
[2021-06-09] MEDS: traMADol HCL (*CRX) 50 MG TABLET PO (18:18)
[2021-06-10 05:56] LABS: Hematocrit 32.7 % (37.0-47.0); Hemoglobin 10.8 g/dL (12.0-15.0); Mean Platelet Volume 9.9 fl (7.4-10.4); Platelet Count Result 208 k/mm3 (150-375); Red Blood Count 3.27 M/mm3 (4.2-5.4); Red Cell Distribution Width 13.3 % (11.5-14.5); White Blood Count 9.6 K/mm3 (4.5-10.0)
[2021-06-10 06:00] VITALS: BP 126/55; PULSE 72; RESP 20; TEMP 36.6; O2SAT 98
[2021-06-10 06:08] LABS: Anion Gap 5 mmol/L (8-16); Blood Urea Nitrogen 13 mg/dL (7-17); Calcium 8.5 mg/dL (8.4-10.2); Carbon Dioxide 30 mmol/L (22-30); Chloride 98 mmol/L (98-107); Estimated CRCL calculation 43 ml/min; Estimated Glomerular Filt Rate > 60; Glucose 102 mg/dL (65-110); Potassium 3.9 mmol/L (3.4-5.0); Sodium 133 mmol/L (137-145)
--- NOTE | 2021-06-10 08:16 | PM.DS ---
DS: Admitting Diagnosis Discharge Date 06/10/2021 Admitting Diagnosis Right knee osteoarthritis DS: Discharge Diagnosis Discharge Diagnosis (1) History of total knee arthroplasty: Qualifiers: Laterality: right Qualified Code(s): Z96.651 - Presence of right artificial knee joint Code(s): Z96.659 - Presence of unspecified artificial knee joint Status: Acute Assessment and Plan: 86-year-old female postop day 3 after total right knee replacement. She states that she is continuing to feel better with therapy. She is able to sit and stand while using the bathroom with less pain in the knee. She will be sent home with tramadol and Tylenol for pain relief. Home health will also be seen her after discharge. She will follow up in our office in 2 weeks for wound check. (2) Hyponatremia: Code(s): E87.1 - Hypo-osmolality and hyponatremia Status: Acute Assessment and Plan: Patient was kept an extra night due to worsening hyponatremia. After fluid restriction and holding Zoloft she was back up to 133. She will have this level checked again in 1 week. Appreciate the hospitalist consult on this. DS: Summary Hospital Course Reason for hospitalization: Observation after total right knee arthroplasty Hospital Course: 86-year-old female was admitted for observation after elective total right knee replacement. Therapy was initiated the day after surgery and she continues to progress back to baseline. She was kept an extra night due to worsening of hyponatremia. After fluid restriction in holding her Zoloft she is now back to 133 this morning. Patient is doing well with current pain medication regimen. She will be sent home with a prescription for tramadol to add to her scheduled Tylenol. Home health will be seen her at home to help with rehab. Status at Discharge Functional status at discharge: uses cane/walker Overall status at discharge: patient is progressing back to baseline Time Spent with Patient Time attestation: Total time spent providing and/or coordinating discharge services: Time spent: Less than 30 minutes Exam Const: General: cooperative, no acute distress and alert Orientation/consciousness: patient oriented x3 Limitations: no limitations HENMT: Head: normal to inspection Ears: hearing grossly abnormal bilaterally ( Hard of hearing) Neck: Neck: normal visual inspection Chest: Chest palpation & inspection: normal inspection of the chest Resp: Effort & Inspection: normal respiratory effort and able to speak in complete sentences GI: Inspection: non-distended GI Palp: No Tenderness to palpation present (GI) Neuro: General: patient oriented x3 Cognition (Neuro): normal cognition Speech: normal speech Extrem: General: other Other: Exam of the right knee shows a clean and dry dressing. Swelling and bruising about the anterior portion of the right knee consistent with recent surgical procedure. Neurovascular status unremarkable. CT negative for tenderness. She is able to dorsi and plantar flex the foot without difficulty. Psych: Mental Status: mental status grossly normal DS: Data Data Completed and Pending Labs on day of discharge: Labs from last 24 hours 06/10/21 06/10/21 06/09/21 05:36 05:36 12:03 WBC 9.6 RBC 3.27 L Hgb 10.8 L Hct 32.7 L MCV 100.0 MCH 33.0 MCHC 33.0 RDW 13.3 Plt Count 208 MPV 9.9 Sodium 133 L 126 L Potassium 3.9 3.7 Chloride 98 95 L Carbon Dioxide 30 27 Anion Gap 5 L 4 L BUN 13 12 Creatinine 0.80 0.70 Estim Creat Clear Calc 43 49 Estimated GFR > 60 > 60 Glucose 102 114 H Calcium 8.5 8.8 Ur Random Sodium 06/09/21 11:49 WBC RBC Hgb Hct MCV MCH MCHC RDW Plt Count MPV Sodium Potassium Chloride Carbon Dioxide Anion Gap BUN Creatinine Estim Creat Clear Calc Estimated GFR Glucose Calcium Ur Random Sodium 18 Discha
[2021-06-10 08:18] VITALS: PULSE 74
[2021-06-10] MEDS: SENNA/DOCUSATE SODIUM TABLET 2 TAB PO (08:18)
[2021-06-10] MEDS: METOPROLOL TARTRATE 50 MG TAB PO (08:18)
[2021-06-10] MEDS: SIMVASTATIN 20 MG TABLET 40 MG PO (08:18)
[2021-06-10] MEDS: polyethylene glycoL 3350 17 GM POWD.PACK PO (08:18)
[2021-06-10] MEDS: RIVAROXABAN 10 MG TABLET PO (08:18)
[2021-06-10] MEDS: CHOLECALCIFEROL 1,000 UNITS TABLET 2000 UNITS PO (08:18)
[2021-06-10] MEDS: FAMOTIDINE 20 MG TABLET PO (08:19)
[2021-06-10] MEDS: TAPENTADOL HCL (*CRX) 50 MG TABLET PO (08:19)
--- NOTE | 2021-06-10 10:02 | PM.IMPN ---
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 If it is still low they may consider adjusting zoloft. (2) History of total knee arthroplasty: Qualifiers: Laterality: right Qualified Code(s): Z96.651 - Presence of right artificial knee joint Code(s): Z96.659 - Presence of unspecified artificial knee joint Status: Acute Assessment and Plan: Postop day 3 of right total knee replacement and doing well -continue with Xarelto for DVT prophylaxis and tramadol for pain (3) Anxiety: Code(s): F41.9 - Anxiety disorder, unspecified Status: Acute Assessment and Plan: Chronic with no acute issues - Continue with alprazolam and Zoloft (4) HTN (hypertension), benign: Code(s): I10 - Essential (primary) hypertension Status: Acute Assessment and Plan: Last blood pressure 126/55 -continue with metoprolol (5) Hyperlipidemia: Code(s): E78.5 - Hyperlipidemia, unspecified Status: Chronic Assessment and Plan: Continue with simvastatin Additional Plan Hemoglobin was 14.5 prior to surgery and today it is 10.8. No active bleed suspected and suspect this will improve overtime. Leukocytosis likely reactionary to surgery and is resolving. No infection suspected Subjective Date/time seen: 06/10/21 10:02 Interval history: Pt is a 86-year-old female here for elective right knee replacement. Patient was seen today and is doing well. She said her pain is better controlled with pain medication right now but her pain got up to 5/10 when walking. She denies numbness, tingling, chest pain, shortness of breath, nausea, vomiting or diarrhea. She plans to go home with the family member and they have 1 stair. She had a BM yesterday. Exam Narrative: General: Well developed well nourished patient in NAD HEENT: normocephalic Neck: supple Neuro: Alert and oriented CV:RRR Resp:CTA Abd: Soft, non distended. No pain to palpation. Positive bowel sounds Extremities: Right knee incision site covered with bandage. No erythema, bleeding or drainage noted to the area. Pulses and sensation intact. Objective Data Vital Signs Vital Signs: Vital Signs - 24 hr 06/09/21 10:09 06/09/21 14:55 06/09/21 20:00 Temperature 98.0 F 98.4 F Pulse Rate 71 74 78 Respiratory Rate 20 20 Blood Pressure 116/51 L 106/49 L Pulse Oximetry 97 94 94 06/09/21 20:23 06/09/21 22:00 06/10/21 06:00 Temperature 98.1 F 97.8 F Pulse Rate 78 74 72 Respiratory Rate 16 20 Blood Pressure 114/44 L 126/55 L Pulse Oximetry 94 98 06/10/21 08:18 Temperature Pulse Rate 74 Respiratory Rate Blood Pressure Pulse Oximetry Intake/Output Intake/Output: Intake & Output 06/07/21 06/08/21 06/09/21 06/10/21 23:59 23:59 23:59 23:59 Intake Total 1540 1580 1000 400 Output Total 950 1700 800 Balance 1540 630 -700 -400 Meds/Results Medications: Active Medications Generic Name Dose Route Start Last Admin Trade Name Freq PRN Reason Stop Dose Admin Acetaminophen 650 mg 06/07/21 14:00 06/10/21 05:28 Acetaminophen 325 Mg Tablet PO Not Given Q8HR EMILIANO Alprazolam 0.5 mg 06/07/21 11:45 Alprazolam (*Crx) 0.5 Mg Tablet PO PRN PRN Anxiety Bisacodyl 10 mg 06/07/21 11:45 Bisacodyl 10 Mg Suppository RECTAL DAILY PRN Constipation Calcium Carbonate 500 mg 06/07/21 17:00 06/10/21 08:18 Calcium/Vitamin D 500 Mg Tablet PO 07/07/21 16:59 500 mg BID EMILIANO Administration Famotidine 20 mg 06/07/21 21:00 06/10/21 08:19 Fa
== END 2021-06-10 13:43 | disposition home or self-care (01) ==
LOC: ANHSURGERY 16:30 → ANH2MED 06-09 08:06
PROVIDERS: Nurse Practitioner; Physician Assistant; Admitting Provider Orthopaedic Surgery; PCP Internal Medicine; Visit Provider Nurse Practitioner
PROC: (CPT 27447; principal; 2021-06-07 07:30)
DX: M17.0 Bilateral primary osteoarthritis of knee (principal); E78.00 Pure hypercholesterolemia, unspecified; E87.1 Hypo-osmolality and hyponatremia; F41.9 Anxiety disorder, unspecified; Z79.899 Other long term (current) drug therapy; Z96.649 Presence of unspecified artificial hip joint; G89.18 Other acute postprocedural pain
CPT/HCPCS: 27447; 64447; 36415; 73560; 80048; 80053; 82728; 83605; 83615; 83735; 84300; 84443; 85014; 85018; 85025; 85027; 86850; 86900; 86901; 97110; 97116; 97161; 97165; 97530; 97535; A9270; C1713; C1776; G0378; J0171; J0690; J1100; J1170; J2405; J2704; J2795; J3010; J7120

== ENCOUNTER 2021-06-15 13:18 | Outpatient (NON) | payer MEDICARE, SELFPAY ==
[2021-06-15 14:00] LABS: Anion Gap 5 mmol/L (8-16); Blood Urea Nitrogen 14 mg/dL (7-17); Calcium 9.3 mg/dL (8.4-10.2); Carbon Dioxide 30 mmol/L (22-30); Chloride 98 mmol/L (98-107); Estimated Glomerular Filt Rate > 60; Glucose 127 mg/dL (65-110); Potassium 4.2 mmol/L (3.4-5.0); Sodium 133 mmol/L (137-145)
== END 2021-06-15 13:19 | disposition home or self-care (01) ==
PROVIDERS: PCP Internal Medicine; Visit Provider Orthopaedic Surgery
DX: M17.12 Unilateral primary osteoarthritis, left knee (principal); I45.10 Unspecified right bundle-branch block; Z47.1 Aftercare following joint replacement surgery; Z96.651 Presence of right artificial knee joint
CPT/HCPCS: 80048